=== PATIENT | male | born 1940 | race Caucasian/White ===

== ENCOUNTER 2020-08-03 05:35 | Outpatient (CLI) | payer MEDICARE, OTHER ==
[~2020-08-03] VITALS: Ht 162 cm; Wt 62.5 kg
[2020-08-03] MEDS ORDERED: DOCU-238 PO (09:20)
[2020-08-03] MEDS ORDERED: MULT-1029 PO (09:20)
[2020-08-03] MEDS ORDERED: ASPI-999 PO (09:20)
[2020-08-03] MEDS ORDERED: FERR-84 PO (09:20)
[2020-08-03] MEDS ORDERED: ALLO100T PO (09:20)
[2020-08-03] MEDS ORDERED: HYDR25TA4 PO (09:20)
[2020-08-03 09:23] VITALS: BP 143/74
[2020-08-03 09:53] LABS: BASOPHILS # (AUTO) 0.1 10^3/uL (0.0-0.1); BASOPHILS % (AUTO) 1 % (0-10); EOSINOPHILS # (AUTO) 0.2 10^3/uL (0.0-0.3); EOSINOPHILS % (AUTO) 4 % (0-10); HEMATOCRIT 34 % (40-54); HEMOGLOBIN 10.8 g/dL (13.3-17.7); LYMPHOCYTES # (AUTO) 0.8 10^3/uL (1.0-4.0); LYMPHOCYTES % (AUTO) 17 % (12-44); MEAN CORPUSCULAR HEMOGLOBIN 33 pg (25-34); MEAN CORPUSCULAR HGB CONC 32 g/dL (32-36); MEAN CORPUSCULAR VOLUME 103 fL (80-99); MEAN PLATELET VOLUME 9.5 fL (9.0-12.2); MONOCYTES # (AUTO) 0.5 10^3/uL (0.0-1.0); MONOCYTES % (AUTO) 11 % (0-12); NEUTROPHILS # (AUTO) 3.2 10^3/uL (1.8-7.8); NEUTROPHILS % (AUTO) 67 % (42-75); PLATELET COUNT 323 10^3/uL (130-400); WHITE BLOOD COUNT 4.8 10^3/uL (4.3-11.0)
[2020-08-03 10:07] LABS: POTASSIUM 3.9 MMOL/L (3.6-5.0)
[2020-08-03 10:08] LABS: CALCIUM 9.2 MG/DL (8.5-10.1)
[2020-08-03 10:12] LABS: CREATININE SERUM 2.16 MG/DL (0.60-1.30)
== END 2020-08-03 10:18 | disposition home or self-care (01) ==
LOC: PREOP 05:35
PROVIDERS: ATTEND Otolaryngology Otolaryngology/Facial Plastic Surgery
DX: Z01.818 Encounter for other preprocedural examination (principal); Z01.812 Encounter for preprocedural laboratory examination; H93.8X2 Other specified disorders of left ear; Z20.828 Contact with and (suspected) exposure to other viral communicable diseases
CPT/HCPCS: 80048; 85025; 87081; 93005; U0002; 36415; 87635

== ENCOUNTER 2020-08-05 06:09 | Day surgery (SDC) | payer MEDICARE, OTHER ==
[2020-08-05] VITALS (10 sets, daily range): BP systolic 130–152; BP diastolic 62–88
[~2020-08-05] VITALS: Ht 162 cm; Wt 62.5 kg
[~2020-08-05 06:09] MED LIST: ALLO100T PO; ASPI-999 PO; DOCU-238 PO; FERR-84 PO; HYDR25TA4 PO; MULT-1029 PO
[2020-08-05] MEDS: LACTATED RINGERS 1,000 ML IV PRN ×2 (06:24→08:42)
--- NOTE | 2020-08-05 06:52 | Progress Note-Pre Operative ---
Pre-Operative Progress Note H&P Reviewed The H&P was reviewed, patient examined and no changes noted. Date Seen by Provider: Aug 05, 2020 Time Seen by Provider: 06: Date H&P Reviewed: Aug 05, 2020 Time H&P Reviewed: 06:30 Pre-Operative Diagnosis: Left Ear Lesion THOMAS MAST MD Aug 05, 2020 06:52
[2020-08-05] MEDS ORDERED: fentaNYL INJECTION 100 MCG/2 ML AMP ONE (06:54)
[2020-08-05] MEDS ORDERED: ONDANSETRON 4 MG/2 ML (SDV) Z0FRAN ONE (06:59)
[2020-08-05] MEDS ORDERED: proPOfol 200 MG/20 ML (DIPRIVAN) VIAL IV ONE (06:59)
[2020-08-05] MEDS ORDERED: LIDOCAINE PF 2% 5 ML (XYLOCAINE) VIAL ONE (06:59)
[2020-08-05] MEDS ORDERED: NEO/POLY/BAC (NEOSPORIN) OINT 15 GM TUBE ONE (07:05)
[2020-08-05] MEDS ORDERED: LIDOCAINE/EPI 1%-1:100,000 (XYLOCAINE) 20ML ONE (07:05)
[2020-08-05] MEDS ORDERED: MUPIROCIN 2% OINT 22 GM (BACTROBAN) TUBE ONE (07:05)
[2020-08-05] MEDS ORDERED: SEVOFLURANE (ULTANE) 15 ML INHAL SOLN ONE ×3 (07:06→08:57)
--- NOTE | 2020-08-05 08:28 | Progress Note-Post Operative ---
Post-Operative Progess Note Surgeon (s)/Clothes Separator (s) Surgeon THOMAS MAST MD Clothes Separator n/a Pre-Operative Diagnosis Left Ear Lesion Post-Operative Diagnosis same Post-Op Procedure Note Date of Procedure: Aug 05, 2020 Name of Procedure Performed: Excison of Left EAr Lesion with Reconstruction with Advancement Flap Description & Findings Description and Findings: n/a Anesthesia Type gen mask Estimated Blood Loss minimal Packing none. Specimen(s) collected/removed left ear lesion for frozen section THOMAS MAST MD Aug 05, 2020 08:28
[2020-08-05] MEDS ORDERED: HYDROcodone/APAP 5 MG/325 MG (LORTAB) TAB PO PRN (08:30)
[2020-08-05] MEDS ORDERED: ACETAMINOPHEN 325 MG TABLET PO PRN (08:30)
--- NOTE | 2020-08-05 08:45 | Anesthesia-General Post-Op ---
General Patient Condition Mental Status/LOC: Same as Preop Cardiovascular: Satisfactory Nausea/Vomiting: Absent Respiratory: Satisfactory Pain: Controlled Complications: Absent Post Op Complications Complications None Follow Up Care/Instructions Patient Instructions None needed. Anesthesia/Patient Condition Patient Condition Patient is doing well, no complaints, stable vital signs, no apparent adverse anesthesia problems. No complications reported per nursing. KELI PEREZ CRNA Aug 05, 2020 08:45
[2020-08-05] MEDS ORDERED: CEPH-507 PO (09:50)
[2020-08-05] MEDS ORDERED: ACHD5005 PO (09:50)
== END 2020-08-05 10:40 ==
LOC: SDC 06:09
PROVIDERS: ATTEND Otolaryngology Otolaryngology/Facial Plastic Surgery
DX: C44.229 Squamous cell carcinoma of skin of left ear and external auricular canal (principal); I10 Essential (primary) hypertension; D64.9 Anemia, unspecified; M19.90 Unspecified osteoarthritis, unspecified site; N20.0 Calculus of kidney; Z79.899 Other long term (current) drug therapy
CPT/HCPCS: 88305; 88331; 88332